=== PATIENT | male | born 1950 | race Caucasian/White ===

== ENCOUNTER 2017-12-15 08:01 | Day surgery (SDC) | payer MEDICARE, OTHER ==
[~2017-12-15 08:01] MED LIST: KETOROLAC TROMETHAMINE 0.45% 4 DROP/0.4 ML DROPERETTE OS PRN
[2017-12-15] MEDS: BESIFLOXACIN HCL 0.6% OPH SUSP 5 ML BOTTLE OS PRN ×4 (08:27→09:31)
[2017-12-15] MEDS: CYCLOPENTOLATE 0.2%/PHENYLEPHRINE 1% OPH SOLN 2 ML OS PRN ×3 (08:27→08:47)
[2017-12-15] MEDS: TROPICAMIDE 1% OPH SOLN 3 ML OS PRN ×3 (08:27→08:47)
[2017-12-15] MEDS: TETRACAINE HCL 0.5% OPH SOLN 0.6 ML DROPERETTE OS PRN ×3 (08:28→09:03)
[2017-12-15] MEDS ORDERED: MIDAZOLAM 2 MG/2 ML INJ ONE (08:41)
[2017-12-15] MEDS: EPINEPHRINE INJ/PF 1 MG/1 ML AMPULE ONE ×2 (09:19)
[2017-12-15] MEDS: CHONDR SU A NA/HYALUR INTRAOC KIT (SURGICARE) ONE ×2 (09:19)
[2017-12-15] MEDS: LIDOCAINE 1% INJ-PF (10 MG/ML) 30 ML SDV ONE ×2 (09:19)
[2017-12-15] MEDS: TOBRAMYCIN SULFATE/DEXAMETH OPH OINTMENT 3.5 GM ONE ×2 (09:31)
== END 2017-12-15 10:10 | disposition home or self-care (01) ==
LOC: SC 08:01
PROVIDERS: ATTEND Ophthalmology
DX: H25.12 Age-related nuclear cataract, left eye (principal); I10 Essential (primary) hypertension; F17.290 Nicotine dependence, other tobacco product, uncomplicated
CPT/HCPCS: 66984; V2630; J2250; J3490 ×3; A9270; J0171; 142

== ENCOUNTER 2017-12-29 07:41 | Day surgery (SDC) | payer MEDICARE, OTHER ==
[~2017-12-29 07:41] MED LIST changes: +KETOROLAC TROMETHAMINE 0.45% 4 DROP/0.4 ML DROPERETTE OD PRN; -KETOROLAC TROMETHAMINE 0.45% 4 DROP/0.4 ML DROPERETTE OS PRN
[2017-12-29] MEDS: TETRACAINE HCL 0.5% OPH SOLN 0.6 ML DROPERETTE OD PRN ×3 (08:03→09:13)
[2017-12-29] MEDS: TROPICAMIDE 1% OPH SOLN 3 ML OD PRN ×3 (08:03→08:27)
[2017-12-29] MEDS: CYCLOPENTOLATE 0.2%/PHENYLEPHRINE 1% OPH SOLN 2 ML OD PRN ×3 (08:04→08:27)
[2017-12-29] MEDS: BESIFLOXACIN HCL 0.6% OPH SUSP 5 ML BOTTLE OD PRN ×4 (08:04→09:38)
[2017-12-29] MEDS ORDERED: MIDAZOLAM 2 MG/2 ML INJ ONE (08:50)
[2017-12-29] MEDS ORDERED: FENTANYL CITRATE INJ/PF 100 MCG/2 ML AMPUL ONE (08:50)
[2017-12-29] MEDS: EPINEPHRINE INJ/PF 1 MG/1 ML AMPULE ONE ×2 (09:28)
[2017-12-29] MEDS: LIDOCAINE 1% INJ-PF (10 MG/ML) 30 ML SDV ONE ×2 (09:30)
[2017-12-29] MEDS: CHONDR SU A NA/HYALUR INTRAOC KIT (SURGICARE) ONE ×2 (09:32)
[2017-12-29] MEDS: TOBRAMYCIN SULFATE/DEXAMETH OPH OINTMENT 3.5 GM ONE ×2 (09:38)
== END 2017-12-29 10:14 | disposition home or self-care (01) ==
LOC: SC 07:41
PROVIDERS: ATTEND Ophthalmology
PROC: 08RJ3JZ Replacement of Right Lens with Synthetic Substitute, Percutaneous Approach (ICD-10-PCS; principal; 2017-12-29 09:00)
DX: H25.11 Age-related nuclear cataract, right eye (principal); I10 Essential (primary) hypertension
CPT/HCPCS: 66984; V2630; J2250; J3490 ×3; A9270; J0171; J3010; 142